=== PATIENT | male | born 1985 | race Caucasian/White ===

== ENCOUNTER 2020-03-31 09:15 | Emergency (ER) | payer OTHER, SELFPAY ==
--- NOTE | ~2020-03-31 | XR_ITS ---
EXAMINATION: XR chest 2V DATE: 03/31/2020 10:01 INDICATION: Abdominal pain. TECHNIQUE: PA and lateral views of the chest were obtained. COMPARISON: Chest radiograph dated 12/21/[address] dated 12/16/2010 FINDINGS: Mild atelectasis/scarring along the left lung base. No other airspace opacities, pulmonary edema, ple ural effusion or pneumothorax. The cardiomediastinal silhouette is normal. Bone island at the right h umeral head. IMPRESSION: 1. Mild left basilar atelectasis/scarring. Reviewed, dictated and finalized at location A.
--- NOTE | ~2020-03-31 | CT_ITS ---
EXAMINATION: CT abdomen pelvis wo con DATE: 03/31/2020 11:02 INDICATION: Right flank pain. Hematuria. Constipation. TECHNIQUE: Computed tomography (CT) of the abdomen and pelvis was performed without intravenous contr ast. Automated exposure control and iterative reconstruction technique were employed. The dose-length product was 1075.36 mGy-cm. COMPARISON: Chest CT 12/16/2010 FINDINGS: The visualized portions of the lung bases demonstrate mild atelectasis. There is a 5 mm nod ule in right lower lobe, likely benign. No pleural effusion. The heart size is normal. No pericardial effusion. There is a 5 mm cyst in the liver. The gallbladder, spleen, pancreas, and adrenal glands a re normal. There is mild right hydronephrosis. There is a 3 mm stone in proximal right ureter. There are two 1 mm stones in left kidney. There is a small left inguinal hernia containing fat. There are n o dilated loops of bowel. The appendix is normal. There are no pathologically enlarged lymph nodes. T here is no free intraperitoneal fluid. There is mild thoracolumbar spondylosis. IMPRESSION: 1. 3 mm stone in proximal right ureter with mild right hydronephrosis. 2. Two nonobstructing 1 mm left kidney stones. Reviewed, dictated and finalized at location E.
[2020-03-31 09:17] VITALS: BP 131/67; PULSE 70; RESP 20; TEMP 37.1; O2SAT 96
--- NOTE | 2020-03-31 09:26 | ED.MALEGU ---
HPI - Male Genitourinary General Chief complaint: Back Pain/Injury Stated complaint: SIDE PAIN CANT GO TO BATHROOM Time Seen by Provider: 03/31/20 09:31 Source: patient Mode of arrival: ambulatory Limitations: no limitations History of Present Illness HPI Narrative: 34-year-old previously woman comes in today complaining of right flank pain that is present for last 4 days. Patient states that he ate some [place] food 4 days ago and had vomiting thereafter. The pain is worse when he lies down and since the onset he has been sleeping in a recliner. He denies diarrhea, Fever, hematuria, dysuria, frequent urination, bloody stools or black stools, and history of urolithiasis. He saw his primary care doctor 2 days ago and was treated with muscle relaxers. He is not taking any opioids. MD Complaint: other ( flank pain) Onset (ago): day(s) (4) Duration: intermittent Location: right flank Severity: severe Quality: sharp Relieving factors: other ( Position) Exacerbating factors: other ( lying supine) Context: lifting ( pain started after he lifted his daughter into a boat) Associated symptoms: Reports nausea/vomiting Related Data Allergies Allergy/AdvReac Type Severity Reaction Status Date / Time No Known Allergies Allergy Verified 03/29/20 12:28 Review of Systems Constitutional: Constitutional: Denies chills and Denies fever(s) Eyes: Eyes: Denies change in vision and Denies photophobia ENT: Denies dysphagia, Denies nasal congestion and Denies sore throat Cardiovascular: Cardiovascular: Denies chest pain and Denies radiating jaw, neck or arm pain Respiratory: Respiratory: Denies chest congestion and Denies cough Gastrointestinal: Gastrointestinal: Reports as per HPI, Reports abdominal pain, Reports diarrhea and Denies vomiting Genitourinary: Genitourinary: Denies hematuria, Denies dysuria and Denies urinary frequency Musculoskeletal: Musculoskeletal: Reports back pain, Denies arthralgias, Denies joint swelling and Denies muscle cramps Integumentary/Breasts: Skin/Breast: Denies pruritus, Denies erythema and Denies rash Neurologic: Denies vertigo, Denies dizziness, Denies syncope, Denies focal weakness and Denies numbness Hematologic/Lymphatic: Hematologic/Lymphatic: Denies easy bleeding and Denies easy bruising Allergic/Immunologic: Allergic/Immunologic: Denies lip swelling and Denies wheezing FORMERLY [facility] Past Medical History Medical History Nicotine dependence, cigarettes, uncomplicated Pneumonia Left thoracostomy tube in 2010 Positive depression screening Family History Family History (Updated 10/31/14 @ 00:00 by CONVUSER A) Father Depression Social History Social History Smoking status: Former smoker Alcohol intake: never Substance use: current Substance use type: marijuana Exam Const: General: healthy appearing and alert Orientation/consciousness: patient oriented x3 Limitations: no limitations Other: Mild acute distress Discharge Plan Discharge Clinical Impression: Urolithiasis Patient Disposition: Home, Self-Care Condition: Stable Instructions: Kidney Stones (ED) Additional Instructions: Drink plenty of fluids. Follow-up with your doctor in the next few days. Strain all urine. If you have fever (>100.2), vomiting, are unable to urinate or have new concerning symptoms, return immediately. Prescriptions: New hydrocodone-acetaminophen [[place]] 5-325 mg tablet 1 tablet PO Q6H PRN (Reason: pain) Qty: 20 RF: 0 tamsulosin 0.4 mg capsule 0.4 mg PO HS Qty: 10 RF: 0 No Action nicotine 21 mg/24 hr patch 24 hour 1 patch TRANSDERM DAILY Qty: 30 RF: 0 nicotine 14 mg/24 hr patch 24 hour 1 patch TRANSDERM DAILY Qty: 14 RF: 0 nicotine 7 mg/24 hr patch 24 hour 1 patch TRANSDERM DAILY Qty: 14 RF: 0 cyclobenzaprine 10 mg tablet 1
[2020-03-31] MEDS: SODIUM CHLORIDE 0.9% IV 1,000 ML 999 ML IV CONT (09:49)
[2020-03-31 09:52] LABS: Basophils Absolute Auto 0.06 K/mm3 (0.00-0.10); Basophils Percent Auto 0.7 % (0.0-1.0); Eosinophils Absolute Auto 0.24 K/mm3 (0.02-0.50); Eosinophils Percent Auto 2.7 % (1.0-6.0); Hematocrit 44.5 % (40.0-54.0); Hemoglobin 15.5 g/dL (14.0-18.0); Immature Granulocyte Absolute 0.04 K/mm3 (0.00-0.00); Immature Granulocyte Percent A 0.4 % (0.0-0.0); Lymphocytes Absolute Auto 2.28 K/mm3 (1.10-4.50); Lymphocytes Percent Auto 25.5 % (18.0-42.0); Mean Corpuscular HGB Conc 34.8 g/dL (32.0-36.0); Mean Corpuscular Hemoglobin 30.6 pg (27.0-31.0); Mean Corpuscular Volume 87.9 fL (78.0-102.0); Mean Platelet Volume 9.8 fl (8.7-11.0); Monocytes Percent Auto 8.9 % (2.0-11.0); Neutrophils Absolute Auto 5.5 K/mm3 (1.7-7.2); Neutrophils Percent Auto 61.8 % (50.0-70.0); Platelet Count Result 223 K/mm3 (150-420); Red Blood Count 5.06 M/mm3 (4.70-6.10); Red Cell Distribution Width 11.8 % (11.6-14.4)
[2020-03-31 10:04] LABS: INR 0.9; Partial Thromboplastin Time 25.8 SEC (22.3-31.6); Prothrombin Time 9.8 Seconds (9.64-11.0)
[2020-03-31 10:06] LABS: Alanine Aminotransferase 29 U/L (16-63); Albumin Level 3.7 g/dL (3.4-5.0); Alkaline Phosphatase 101 U/L (46-116); Anion Gap 9.4 mmol/L (7-16); Aspartate Amino Transferase 17 U/L (15-37); Bilirubin,Total 0.3 mg/dL (0.00-1.00); Blood Urea Nitrogen 19 mg/dL (7-18); Calcium 8.7 mg/dL (8.5-10.1); Carbon Dioxide 32 mmol/L (21-32); Chloride 103 mmol/L (98-108); Estimated CRCL calculation 105 ml/min; Estimated Glomerular Filt Rate > 60; Glucose 96 mg/dL (70-99); Lipase 173 U/L (73-393); Osmolality Calculated 292 mOsm/kg (285-295); Potassium 4.4 mmol/L (3.5-5.1); Sodium 140 mmol/L (136-145); Total Protein 6.9 g/dL (6.4-8.2)
[2020-03-31 10:12] LABS: Lactic Acid Reflex 1.1 mmol/L (0.4-2.0)
--- NOTE | 2020-03-31 10:13 | PC.NURSE ---
pt resting per cot. no complaints voiced at this time. unable to urinate at this time.
[2020-03-31 10:32] LABS: Add Urine Microscopic? YES; Appearance Urine Clear (Clear); Bilirubin Urine Negative (Negative); Blood Urine 2+ (Negative); Color Urine Yellow (Yellow); Glucose Urine UA Negative (Negative); Ketones Urine Negative (Negative); Leukocyte Esterase Ur Negative (Negative); Nitrate Urine Negative (Negative); Protein Urine Negative (Negative); Specific Grav Ur 1.015 (1.010-1.020); Urobilinogen Urine 0.2 mg/dL (0.2-1.0)
[2020-03-31 10:40] LABS: Bacteria Urine Trace /hpf; Squamous Epithelial Cell Urine Rare /hpf (Few); WBC Urine None seen /hpf (0-3)
[2020-03-31] MEDS: KETOROLAC 30 MG/ML VIAL (*BKC) IV PUSH (10:53)
--- NOTE | 2020-03-31 10:55 | PC.NURSE ---
pt to xray per wheelchair for ct scan. report to molly rueda. continues to rate pain 2/.
[2020-03-31 11:57] VITALS: BP 121/61; PULSE 63; RESP 16
== END 2020-03-31 11:57 | disposition home or self-care (01) ==
PROVIDERS: Emergency Provider Emergency Medicine; PCP Nurse Practitioner Family
DX: N20.9 Urinary calculus, unspecified (principal)
CPT/HCPCS: 36415; 71046; 74176; 80053; 81001; 83605; 83690; 85025; 85610; 85730; 96361; 96374; 99281; 99284; J1885; J7030

== ENCOUNTER 2020-04-03 10:09 | Emergency (ER) | payer OTHER, SELFPAY ==
--- NOTE | ~2020-04-03 | XR_ITS ---
EXAMINATION: XR abdomen/kub 1V INDICATION: Right flank pain TECHNIQUE: Supine views of the abdomen were obtained on 2 radiographs. COMPARISON: CT, 03/31/2020 FINDINGS: The previously described right proximal ureteral stone is not definitely identified. Phlebo liths are noted in the left pelvis. The bowel gas pattern is normal. The visualized osseous structure s are unremarkable. IMPRESSION: 1. Previously described right proximal ureteral stone not definitely identified. Reviewed, dictated and finalized at location A. IMPRESSION: 1. Previously described right proximal ureteral stone not definitely identified .
[2020-04-03 10:12] VITALS: BP 145/80; PULSE 88; RESP 18; TEMP 36.4; O2SAT 100
[2020-04-03] MEDS: LACTATED RINGERS 1,000 ML 999 ML IV CONT (10:39)
[2020-04-03 10:48] LABS: Basophils Absolute Auto 0.1 K/mm3 (0.0-0.1); Basophils Percent Auto 0.7 % (0.2-1.2); Eosinophils Absolute Auto 0.7 K/mm3 (0-0.3); Eosinophils Percent Auto 8.4 % (0-4.4); Hematocrit 45.3 % (42.0-52.0); Hemoglobin 15.8 g/dL (14.0-18.0); Immature Granulocyte Absolute 0.03 K/mm3 (0.00-0.031); Immature Granulocyte Percent A 0.3 % (0-0.5); Lymphocytes Absolute Auto 2.86 K/mm3 (0.9-3.2); Lymphocytes Percent Auto 32.4 % (18.3-44.2); Mean Corpuscular HGB Conc 34.9 g/dl (32-36); Mean Corpuscular Hemoglobin 30.4 pg (26-34); Mean Corpuscular Volume 87.1 fl (80-100); Mean Platelet Volume 10.4 fl (7.4-10.4); Monocytes Absolute Auto 0.8 K/mm3 (0.1-0.6); Neutrophils Absolute Auto 4.3 K/mm3 (1.3-6.7); Neutrophils Percent Auto 49.2 % (45.5-73.1); Platelet Count Result 233 k/mm3 (150-375); Red Cell Distribution Width 11.8 % (11.5-14.5); White Blood Count 8.8 K/mm3 (4.5-10.0)
--- NOTE | 2020-04-03 10:51 | ED.BACK ---
HPI - Back Pain/Injury General Chief Complaint: Back Pain/Injury <Keo Ferrera PA-C - Last Filed: 04/03/20 12:54> Stated Complaint: kidney stones <Keo Ferrera PA-C - Last Filed: 04/03/20 12:54> Time Seen by Provider: 04/03/20 10:13 <Keo Ferrera PA-C - Last Filed: 04/03/20 12:54> Source: patient and family <Keo Ferrera PA-C - Last Filed: 04/03/20 12:54> Mode of arrival: ambulatory <Keo Ferrera PA-C - Last Filed: 04/03/20 12:54> Limitations: no limitations <TAMIKA Shepherd Last Filed: 04/03/20 12:54> History of Present Illness HPI Narrative: Patient is a 34-year-old male who presents with continued flank pain noting 2 out of 10 right-sided flank pain diagnosed with a 3 mm urolithiasis over the weekend at outside hospital patient has been taking hydrocodone and Flomax with some improvement but notes in the evening he gets in creasing pain patient denies any vomiting fever chills hematuria presents in no distress <Keo Ferrera PA-C - Last Filed: 04/03/20 12:54> Related Data Allergies/Adverse Reactions: Allergies Allergy/AdvReac Type Severity Reaction Status Date / Time No Known Allergies Allergy Verified 04/03/20 10:16 <TAMIKA Shepherd Last Filed: 04/03/20 12:54> Review of Systems Review of Systems: All systems reviewed & are unremarkable except as noted in HPI and below <Keo Ferrera PA-C - Last Filed: 04/03/20 12:54> [facility] Past Medical History Medical History: Medical History Nicotine dependence, cigarettes, uncomplicated Pneumonia Left thoracostomy tube in 2010 Positive depression screening <TAMIKA Shepherd Last Filed: 04/03/20 12:54> Family History Family History: Family History (Updated 10/31/14 @ 00:00 by CONVUSER Colin) Father Depression <TAMIKA Shepherd Last Filed: 04/03/20 12:54> Social History Social History: Social History Smoking status: Former smoker Alcohol intake: never Substance use: current Substance use type: marijuana <Keo Ferrera PA-C - Last Filed: 04/03/20 12:54> Exam Narrative: Exam Narrative: GENERAL: Well-appearing, well-nourished, and in no acute distress. HEAD: Normocephalic, atraumatic. EYES: PERRLA and EOMI. ENT: Nares clear, no rhinorrhea or epistaxis. Mucous membranes moist. CHEST: Clear to auscultation. No respiratory distress. No wheezes rales or rhonchi HEART: Regular rate and rhythm. No murmur heard. Normal peripheral pulses. ABDOMEN: Soft, tenderness of the right flank no deformities noted, nondistended EXTREMITIES: Normal range of motion. No edema. SKIN: Warm, dry, no rash. NEURO: No focal deficits. Alert and oriented x3. PSYCH: Normal mood and affect. <Keo Ferrera PA-C - Last Filed: 04/03/20 12:54> Course Course Emergency Course: Patient in the room in no distress aware of case findings treatment plan and diagnosis agreeing to follow-up with urology <TAMIKA Shepherd Last Filed: 04/03/20 12:54> Consultations Consultation #1: Discussed case with urology who will follow patient in clinic notes that it is okay for the patient to have Toradol as a pain augment <Keo Ferrera PA-C - Last Filed: 04/03/20 12:54> Date: 04/03/20 <TAMIKA Shepherd Last Filed: 04/03/20 12:54> Time: 12:51 <TAMIKA Shepherd Last Filed: 04/03/20 12:54> Vital Signs Vital signs: Vital Signs Temperature 97.5 F L 04/03/20 10:12 Pulse Rate 88 04/03/20 10:12 Respiratory Rate 18 04/03/20 10:12 Blood Pressure 145/80 H 04/03/20 10:12 Pulse Oximetry 100 04/03/20 10:12 Temperature 97.5 F L 04/03/20 10:12 Pulse Rate 80 04/03/20 12:28 Respiratory Rate 20 04/03/20 12:28 Blood Pressure 154/70 H 04/03/20 12:28 Pulse Oximetry 99 04/03/20 12:28
[2020-04-03 10:57] LABS: Blood Urea Nitrogen 12 mg/dL (9-20); Calcium 9.3 mg/dL (8.4-10.2); Carbon Dioxide 30 mmol/L (22-30); Chloride 101 mmol/L (98-107); Estimated CRCL calculation 136 ml/min; Estimated Glomerular Filt Rate > 60; Glucose 110 mg/dL (75-110); Sodium 137 mmol/L (137-145)
[2020-04-03 11:28] LABS: Add Urine Microscopic? YES; Appearance Urine Clear (Clear); Bilirubin Urine Negative (Negative); Blood Urine 2+ (Negative); Color Urine Yellow (Yellow); Glucose Urine UA Negative (Negative); Ketones Urine Negative (Negative); Leukocyte Esterase Ur Trace LEU/UL (Negative); Mucus Urine Rare /lpf; Nitrate Urine Negative (Negative); Protein Urine Negative (Negative); Specific Grav Ur 1.013 (1.001-1.035); Urobilinogen Urine Negative mg/dL (<2.0)
[2020-04-03] MEDS: SODIUM CHLORIDE 0.9% IV 1,000 ML 999 ML IV CONT (12:22)
[2020-04-03 12:28] VITALS: BP 154/70; PULSE 80; RESP 20; O2SAT 99
[2020-04-03 13:07] VITALS: BP 132/88; PULSE 80; RESP 20; TEMP 36.7; O2SAT 99
== END 2020-04-03 13:09 | disposition home or self-care (01) ==
PROVIDERS: Emergency Medicine Emergency Medical Services; Emergency Provider Emergency Medicine; PCP Nurse Practitioner Family
DX: N20.1 Calculus of ureter (principal); R31.9 Hematuria, unspecified; Z87.891 Personal history of nicotine dependence
CPT/HCPCS: 36415; 74018; 80048; 81001; 85025; 96361; 96374; 99284; J0131; J7030; J7120

== ENCOUNTER 2020-05-18 08:56 | Outpatient (CLI) | payer OTHER, SELFPAY ==
--- NOTE | ~2020-05-18 | CT_ITS ---
EXAMINATION: CT abdomen pelvis wo con EXAM DATE: 05/18/2020 09:13 INDICATION: Follow-up. Intermittent right flank pain. Prior study demonstrating right ureteral proxim al 3 mm stone, punctate left nephrolithiasis. TECHNIQUE: Spiral CT of the abdomen and pelvis was performed without contrast. Axial, coronal and sag ittal images were reviewed. The dose-length product (DLP) for this examination was 424.81 mGy-cm. T he exposure was tailored according to patient size (auto mA exposure control), and iterative reconstr uction (ASIR) was used as additional dose reduction technique. Comparison is made to prior examinatio n from 03/31/2020. FINDINGS: Previously seen right proximal ureteral stone has passed, with resolution of previously see n hydronephrosis. There is a single punctate left calyceal stone. The prostate is unremarkable. No The bladder is unremarkable. The liver, spleen, adrenal glands and pancreas are unremarkable. Gallb ladder is unremarkable. No biliary obstruction. There is no retroperitoneal or pelvic lymphadenopat hy. The appendix is normal. The stomach and small bowel are unremarkable. There is expected amount of c olonic stool. No free intraperitoneal gas. The heart is normal in size. There are no pericardial or pleural effusions. The lung bases are unremarkable. The bones are unremarkable. IMPRESSION: 1. Punctate left nephrolithiasis. 2. No acute findings. Reviewed, dictated and finalized at location A.
== END 2020-05-18 08:57 | disposition home or self-care (01) ==
PROVIDERS: PCP Family Medicine; Visit Provider Family Medicine
DX: N20.0 Calculus of kidney (principal)
CPT/HCPCS: 74176

== ENCOUNTER 2020-12-16 09:07 | Outpatient (CLI) | payer OTHER, SELFPAY ==
--- NOTE | ~2020-12-16 | XR_ITS ---
XR shoulder RT min 2V DATE: 12/16/2020 09:28 INDICATION: Right shoulder pain after fall 5 months ago TECHNIQUE: 4 views COMPARISON: None FINDINGS: No fracture or dislocation, periosteal reaction or bone destruction or abnormal soft tissue calcification. IMPRESSION: Negative Reviewed, dictated and finalized at location A. 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
== END 2020-12-16 09:08 | disposition home or self-care (01) ==
LOC: CHSIMG 09:09
PROVIDERS: PCP Nurse Practitioner Family; Visit Provider Nurse Practitioner Family
DX: M25.511 Pain in right shoulder (principal)
CPT/HCPCS: 73030

== ENCOUNTER 2021-01-02 10:07 | Outpatient (CLI) | payer OTHER, SELFPAY ==
[2021-01-02 11:40] LABS: Influenza Control Valid (Valid); SARS-CoV-2 Ag Negative (Negative)
[2021-01-03 14:15] LABS: SARS-CoV-2 RNA PCR Negative
== END 2021-01-02 10:08 | disposition home or self-care (01) ==
LOC: CHSLAB 10:11
PROVIDERS: PCP Family Medicine; Visit Provider Nurse Practitioner Family
DX: R09.81 Nasal congestion (principal); Z20.822 Contact with and (suspected) exposure to COVID-19
CPT/HCPCS: 87426; 87804; C9803; U0003; U0005

== ENCOUNTER 2022-04-27 20:38 | Emergency (ER) | payer OTHER, SELFPAY ==
--- NOTE | ~2022-04-27 | CT_ITS ---
EXAMINATION: CT abdomen pelvis wo con DATE: 04/27/2022 21:10 INDICATION: Left flank pain for 2 days. History of kidney stones. TECHNIQUE: Computed tomography (CT) of the abdomen and pelvis was performed without intravenous contr ast. The dose-length product was 251.10 mGy-cm. Automated exposure control and iterative reconstructi on technique were employed. COMPARISON: CT dated 05/18/2020. FINDINGS: Lung bases are unremarkable. Heart size normal. No significant pleural or pericardial effus ion. No significant vascular abnormality. No lymphadenopathy. The liver, spleen, pancreas, adrenal gl ands and right kidney are unremarkable. There is mild left hydronephrosis secondary to a left mid ure teral stone measuring 3 mm, image 104. The stone is located at the L4-5 disc level. Nonobstructive jimenez wel gas pattern. No acute osseous abnormality. IMPRESSION: 1. Partially obstructing left mid ureteral stone at the L4-5 level measuring 3 mm. Mild hydronephrosi s. Reviewed, dictated and finalized at location A. IMPRESSION: 1. Partially obstructing left mid ureteral stone at the L4-5 level measuring 3 mm. Mild hydronephrosis.
--- NOTE | 2022-04-27 20:41 | ED.ABDPAIN ---
HPI - Abdominal Pain General Chief Complaint: Urogenital-Male Stated Complaint: possible kidney stone Time Seen by Provider: 04/27/22 20:40 Source: patient and RN notes reviewed Mode of arrival: ambulatory Limitations: no limitations History of Present Illness MD elicited complaint: flank pain Pertinent past history: kidney stones Onset (ago): day(s) (1) Pain Consistency: intermittent and other ( progressively worsening) Location: L flank Severity: moderate Quality: stabbing and sharp Radiation: none Migration to: no migration Exacerbating factors: nothing Relieving factors: nothing Associated symptoms: nausea, vomiting and chills Related Data Allergies Allergy/AdvReac Type Severity Reaction Status Date / Time No Known Allergies Allergy Verified 04/27/22 21:04 Review of Systems Review of Systems: All systems reviewed & are unremarkable except as noted in HPI and below Constitutional: Constitutional: Denies fever(s) Genitourinary: Genitourinary: Denies hematuria and Denies dysuria PMFSH Past Medical History Medical History (Updated 04/27/22 @ 21:54 by Hang Hensley MD) Lateral epicondylitis of right elbow Nephrolithiasis Nicotine dependence, cigarettes, uncomplicated Pneumonia Left thoracostomy tube in 2010 Positive depression screening Family History Family History Father Depression Social History Social History Smoking status: Current every day smoker Alcohol intake: never Substance use: current Substance use type: marijuana Exam Const: General: healthy appearing, no acute distress and alert Nutritional Appearance: well nourished Orientation/consciousness: patient oriented x3 Limitations: no limitations HENMT: Head: normal to inspection Ears: external ears normal Eyes: Conjunctivae: conjunctivae normal Pupils: Equal, round and reactive pupils present EOM: EOMs intact bilaterally Neck: Neck: normal visual inspection Resp: Effort & Inspection: normal respiratory effort Auscultation: clear to auscultation bilaterally Cardio: Rate: regular rate Rhythm: regular rhythm GI: GI Palp: Yes Soft to palpation, No Tenderness to palpation present (GI) and No Guarding due to palpation present (GI) Auscultation: normal bowel sounds Back/Spine/Pelvis: Back: CVA tenderness ( moderate on the left) Cervical Spine: cervical ROM normal Thoracic/Lumbar Spine: thoraco-lumbar ROM normal Skin: General skin exam: normal color Rashes: no rashes Neuro: General: patient oriented x3, moves all extremities, no focal motor deficits and CN's II-XI intact bilaterally Speech: normal speech Gait exam (Neuro): Normal gait present Extrem: General: normal to inspection and no clubbing, cyanosis or edema Psych: Mental Status: mental status grossly normal Affect: normal affect Attitude: cooperative Course Vital Signs Vital signs: Vital Signs Temperature 36.8 C 04/27/22 20:46 Pulse Rate 65 04/27/22 20:46 Respiratory Rate 18 04/27/22 20:46 Blood Pressure 146/101 H 04/27/22 20:46 Pulse Oximetry 98 04/27/22 20:46 Oxygen Delivery Room Air 04/27/22 20:46 Temperature 36.8 C 04/27/22 20:46 Pulse Rate 65 04/27/22 20:46 Respiratory Rate 18 04/27/22 20:46 Blood Pressure 146/101 H 04/27/22 20:46 Pulse Oximetry 98 04/27/22 20:46 Oxygen Delivery Room Air 04/27/22 20:46 MDM - Abdominal Pain Differential Diagnosis Differential diagnosis: Likely calculus of kidney Lab Data Attestation: I reviewed the patient's lab results. Result diagrams: 04/27/22 21:16 04/27/22 21:16 Labs: Lab Results 04/27/22 04/27/22 04/27/22 Range/Units 21:16 21:16 21:16 WBC 13.4 H (4.8-10.8) K/mm3 RBC 5.33 (4.70-6.10) M/mm3 Hgb 16.5 (14.0-18.0) g/dL Hct 48.0 (40.0-54.0) % MCV 90.1 (78.0-102.0) fL MCH 31.0 (27
[2022-04-27 20:46] VITALS: BP 146/101; PULSE 65; RESP 18; TEMP 36.8; O2SAT 98
[2022-04-27] MEDS: KETOROLAC (*BKC) 60 MG/2 ML VIAL IM (20:59)
[2022-04-27 21:24] LABS: Basophils Percent Auto 0.7 % (0.0-1.0); Eosinophils Absolute Auto 0.29 K/mm3 (0.02-0.50); Eosinophils Percent Auto 2.2 % (1.0-6.0); Hemoglobin 16.5 g/dL (14.0-18.0); Immature Granulocyte Absolute 0.05 K/mm3 (0.00-0.00); Immature Granulocyte Percent A 0.4 % (0.0-0.0); Lymphocytes Absolute Auto 3.75 K/mm3 (1.10-4.50); Lymphocytes Percent Auto 28.1 % (18.0-42.0); Mean Corpuscular HGB Conc 34.4 g/dL (32.0-36.0); Mean Corpuscular Volume 90.1 fL (78.0-102.0); Mean Platelet Volume 10.3 fl (8.7-11.0); Monocytes Absolute Auto 1.08 K/mm3 (0.10-0.90); Monocytes Percent Auto 8.1 % (2.0-11.0); Neutrophils Absolute Auto 8.1 K/mm3 (1.7-7.2); Neutrophils Percent Auto 60.5 % (50.0-70.0); Platelet Count Result 248 K/mm3 (150-420); Red Blood Count 5.33 M/mm3 (4.70-6.10); Red Cell Distribution Width 11.9 % (11.6-14.4); White Blood Count 13.4 K/mm3 (4.8-10.8)
[2022-04-27] MEDS: ONDANSETRON HCL ODT 4 MG TABLET PO (21:25)
[2022-04-27 21:33] LABS: Add Urine Microscopic? YES; Bilirubin Urine 1+ (Negative); Blood Urine 3+ (Negative); Color Urine Dark Yellow (Yellow); Glucose Urine UA Negative (Negative); Ketones Urine Negative (Negative); Leukocyte Esterase Ur Negative LEU/UL (Negative); Nitrate Urine Negative (Negative); Protein Urine 2+ (Negative); Specific Grav Ur >= 1.030 (1.010-1.020); Urobilinogen Urine 0.2 mg/dL (0.2-1.0)
[2022-04-27 21:36] LABS: Alanine Aminotransferase 23 U/L (16-63); Albumin Level 4.1 g/dL (3.4-5.0); Alkaline Phosphatase 100 U/L (46-116); Anion Gap 9 mmol/L (8-16); Aspartate Amino Transferase 12 U/L (15-37); Bilirubin,Total 0.3 mg/dL (0.00-1.00); Blood Urea Nitrogen 19 mg/dL (7-18); Calcium 9.4 mg/dL (8.5-10.1); Carbon Dioxide 30 mmol/L (21-32); Chloride 103 mmol/L (98-108); Estimated CRCL calculation 84 ml/min; Estimated Glomerular Filt Rate > 60; Glucose 102 mg/dL (70-99); Osmolality Calculated 296 mOsm/kg (285-295); Potassium 4.1 mmol/L (3.5-5.1); Sodium 142 mmol/L (136-145); Total Protein 7.3 g/dL (6.4-8.2)
[2022-04-27 21:41] LABS: Appearance Urine Cloudy (Clear); RBC Urine >75 /hpf (0-2)
[2022-04-27 21:42] LABS: Calcium Oxalate Crystals Urine Present /hpf; Mucus Urine Moderate /lpf
[2022-04-27] MEDS: TAMSULOSIN HCL 0.4 MG CAPSULE PO (22:05)
[2022-04-27 22:14] VITALS: BP 117/64; PULSE 64; RESP 16; TEMP 36.4; O2SAT 95
== END 2022-04-27 22:20 | disposition home or self-care (01) ==
PROVIDERS: Emergency Provider Emergency Medicine; PCP Family Medicine
DX: N20.1 Calculus of ureter (principal)
CPT/HCPCS: 36415; 74176; 80053; 81001; 85025; 96372; 99284; A9270; J1885